=== PATIENT | female | born 1965 | race Caucasian/White ===

== ENCOUNTER 2016-11-19 11:00 | Inpatient (IN) | payer OTHER ==
[~2016-11-19] VITALS: Ht 175.3 cm; Wt 38.6 kg
--- NOTE | ~2016-11-19 | HP ---
Unit #: [id number] #: [id number] Patient: TAYA HENDRICKSON [id number] [place] [address] [id number] MR#: [id number] NAME: TAYA HENDRICKSON ROOM: P202 Age: 50 Sex: F Admission Date: 11/19/2016 : 1965 Attending Physician: Livan Ortiz M.D. Admitting Physician: Livan Ortiz M.D. Primary Care Physician: Generic Doctor Not In System HISTORY AND PHYSICAL HISTORY OF PRESENT ILLNESS Taya is a 50 year old admitted to [address] [place] [address] because of her abuse of alcohol. PAST MEDICAL HISTORY Long history of alcohol abuse. PAST SURGICAL HISTORY 1. Appendectomy. 2. T and A. ALLERGIES No known drug allergies. SOCIAL HISTORY Smokes 1/2 pack per day. Drinks a 12 pack plus at least a half bottle of wine on a daily basis. She denies illicit drug use. FAMILY HISTORY Medically noncontributory. REVIEW OF SYSTEMS CONSTITUTIONAL: No fever or chills. HEENT: Denies any sore throat, ear pain or runny nose. CARDIOVASCULAR: Denies chest pain, irregular heart rhythm or palpitations. CHEST: Denies shortness of breath or cough. No hemoptysis. GASTROINTESTINAL: Denies nausea, vomiting, diarrhea or chronic constipation. ENDOCRINE: Denies history of increased thirst or urination. No recent significant weight loss or gain. GENITOURINARY: Denies dysuria, frequency, or hematuria. SKIN: Denies any rashes. HEMATOLOGIC: Denies history of increased bleeding or bruising. MUSCULOSKELETAL: Denies any hot, swollen joints. No generalized muscle pain. NEUROLOGIC: Denies problems with vision or speech. No frequent, severe headaches. No numbness, tingling or weakness in any extremities. Denies loss of bladder or bowel control. CURRENT MEDICATIONS Detox protocol. PHYSICAL EXAMINATION Unit #: [id number] #: [id number] Patient: TAYA HENDRICKSON GENERAL: Alert, appearing much, much older than her stated age of 50 in no apparent distress. VITAL SIGNS: Blood pressure 120/94, heart rate 96, respirations 16, temperature 98.6. WEIGHT: 85 pounds. HEIGHT: 5 feet 9 inches. SKIN: Warm and dry without rash or lesion. HEENT: Normocephalic. TMs not viewed. Oral and nasal passages clear. Conjunctivae clear. PERRLA. EOMs intact. NECK: Supple without lymphadenopathy or thyromegaly. HEART: Regular rate and rhythm without murmur. LUNGS: Clear. ABDOMEN: Soft, nontender. : Not done. EXTREMITIES: No evidence of cyanosis, clubbing or edema. Moves all without focal deficit. NEUROLOGICAL: Grossly within normal limits. Cranial Nerves: II: Visual tan are intact. III, IV AND : Extraocular movements are intact. Pupils are equal, round and reactive to light. V: Facial sensation is grossly normal. VII: Facial movements and expression are normal. VIII: Auditory acuity grossly intact. IX, X: Uvula is midline. Phonation is normal. XI: Patient shrugs shoulders and turns head normally. XII: Tongue protrudes in the midline. Sensory and Motor Function: Sensory and motor sensation is grossly normal. Motor: moves all extremities well. Coordination: Gait is normal. Deep Tendon Reflexes: Intact. IMPRESSION Psychiatric admission. RECOMMENDATIONS PSYCHIATRIC: Per psychiatrist. MEDICAL: See no contraindication to participate in facility's activities. MEDICAL PROGNOSIS Good. MEDICAL CONDITION Stable. Dictated by... Renetta SamayoaAJonn. for Rosy Encarnacion/cassy TD: 11/20/2016 16:12 JOB #: [id number] Unit #: [id number] #: [id number] Patient: TAYA HENDRICKSON HISTORY AND PHYSICAL Page 1 of 1 X Ana Deng HISTORY AND PHYSICAL
--- NOTE | ~2016-11-19 | DS ---
Unit #: [id number] #: [id number] Patient: MARIO HENDRICKSON [id number] [facility] [address] [place] [address] [id number] I MR#: [id number] NAME: MARIO HENDRICKSON ROOM: P202 Age: 50 Sex: F Admission Date: 11/19/2016 : 1965 Discharge Date: 11/24/2016 Attending Physician: Livan Ortiz M.D. Primary Care Physician: Generic Doctor Not In System DISCHARGE SUMMARY REASON FOR ADMISSION The patient is a 50-year-old white female, admitted for alcohol detox. HOSPITAL COURSE The patient was admitted to the [address] [place] [address] unit and placed on routine detoxification protocol for alcohol. Her stay in the hospital was a brief and uneventful one. Her detox went smoothly and by 11/24/2016, arrangements have been made for the patient to go to "[facility]" in [place], [place]. She did request "something for anxiety" at the time of discharge. We will be provide a prescription for Vistaril to be used on a p.r.n. basis for anxiety. FINAL DIAGNOSES Alcohol use disorder. DISPOSITION ON DISCHARGE The patient is discharged on the following medications: Vistaril 50 mg q.8 hours p.r.n. anxiety. DISCHARGE INSTRUCTIONS No dietary or physical restrictions were placed on the patient at the time of discharge. FOLLOWUP Followup will take place through the auspices of "[facility]" in [place], [place]. PROGNOSIS Her prognosis is considered good. Dictated by... Livan Ortiz M.D. CB/josh TD: 11/24/2016 16:02 JOB #: [id number] Unit #: [id number] #: [id number] Patient: MARIO HENDRICKSON DISCHARGE SUMMARY Page 1 of 1 X Livan Ortiz MD X DISCHARGE SUMMARY
--- NOTE | ~2016-11-19 | A ---
[facility] Nutrition Therapy DATE: 11/20/16 Patient: MARIO HENDRICKSON Physician: BOBY Address: [address] Room/Bed: [address], Zip: [place] [address] Admit Date: 11/19/16 Date of : [birth year] Height: 5 9 Weight: 84 38.91845 NUTRITIONAL ASSESSMENT: REASON: LOW BMI (12.6) PATIENT ADMITTED FOR ETOH DETOX PMH: NONE Anthropometrics: HT: 69", WT: 85#, BMI: 12.6 Labs: NO LABS AVAILABLE Meds: DETOX PROTOCOL, MVI, VIT B COMPLEX, MELATONIN Assessment: PATIENT IS A 50 Y/O FEMALE ADMITTED FOR ETOH DETOX. PATIENT IS CURRENTLY UNEMPLOYED, LIVES WITH HER 2 AUNTS, SMOKES 1/2 PPD, AND HAS DAILY ETOH USE. IT IS NOTED THAT PRIOR TO ADMIT PATIENT HAS SOME LOSS OF BALANCE AND CONFUSION. PATIENT STATED THAT HER APPETITE FLUCTUATES, SHE HAS LOST 50# X 1 YEAR, AND SHE HAS NOT BEEN SLEEPING. NURSING REPORTED GOOD PO INTAKES, AND THAT PATIENT ATE DINNER LAST NIGHT AND BREAKFAST THIS MORNING. DURING VISIT PATIENT DID APPEAR TO BE QUITE THIN AND SHE HAD SOME C/O DIARRHEA. THIS RD DSCUSSED THE IMPORTANCE OF DRINKING PLENTY OF FLUIDS WHILE PATIENT IS EXPERIENCING DIARRHEA. PATIENT AGREED AND IS WILLING TO DRINK ENSURE WITH MEALS. SHE IS CURRENTLY ON A REGULAR DIET WITH NO CAFFEINE AND THERE ARE NO SKIN ISSUES NOTED ATT. Dx: INADEQUATE NUTRIENT INTAKE R/T ETOH ABUSE, CURRENT CONDITIONS AEB SELF-REPORTED SEVERE! WEIGHT LOSS AND DECREASED APPETITE, EXTREMELY LOW BMI. Intervention: REGULAR DIET, NO CAFFEINE, SUPPLEMENTS, MEDS PER MD, DETOX, PSYCH Monitoring, Evaluation and Goals: 1. ADEQUATE PO INTAKES >75% OF MEALS 2. PREVENT, CORRECT MICRO/MACRO NUTRIENT DEFICIENCIES 3. WEIGHTS; PROMOTE STEADY WEIGHT GAIN TOWARDS A HEALTHY BMI OF 19-25, PREVENT FURTHER WEIGHT LOSS MONITOR: WEIGHTS, LABS, PO/FLUID INTAKES Recommendations: 1. CONTINUE REGULAR DIET WITH NO CAFFEINE AND DAILY MVI. OFFER SNACKS BETWEEN MEALS. IF PATIENT HAS C/O HUNGER OR WOULD LIKE MORE FOOD, PLEASE SEND ORDER FOR LARGER PORTIONS AND RD WILL APPROVE [facility] DATE: 11/20/16 Patient: MARIO HENDRICKSON Physician: BOBY Address: [address] [place] [address] Room/Bed: P202-[address] [facility], Zip: [place] [address] Admit Date: 11/19/16 Date of : [birth year] Height: 5 9 Weight: 84 [phone] 2. ENCOURAGE ADEQUATE PO AND FLUID INTAKES. PATIENT IS AT A HIGH RISK FOR DEHYDRATION D/T DIARRHEA 3. OBTAIN WEIGHTS ROUTINELY (EVERY 3-4 DAYS) TO ENSURE PATIENT HAS ADEQUATE KCAL INTAKES 4. SEND CHOCOLATE ENSURE TID WITH MEALS. PATIENT HAS A NEED FOR INCREASED CALORIC INTAKE 5. MAY CONSIDER ADDING AN APPETITE STIMULANT RD TO F/U PER PROTOCOL AND PRN R/T PATIENT MILD/MODERATELY COMPROMISED Respectfully, CHRISTY ELIAS, BRENDA, LD [facility] cc: client file
--- NOTE | ~2016-11-19 | PA ---
Unit #: [id number] #: [id number] Patient: MARIO HENDRICKSON [id number] [place] [address] [id number] I MR#: [id number] NAME: MARIO HENDRICKSON ROOM: P202 Age: 50 Sex: F Admission Date: 11/19/2016 : 1965 Date of Assessment: 11/20/2016 Attending Physician: Livan Ortiz M.D. Admitting Physician: Livan Ortiz M.D. Primary Care Physician: Generic Doctor Not In System PSYCHIATRIC ASSESSMENT IDENTIFYING INFORMATION The patient is a 50-year-old white female admitted to the [address] [place] [address] for alcohol detox. CHIEF COMPLAINT "Drinking too much." INFORMANT(S) Patient, reliability is good. HISTORY OF PRESENT ILLNESS The patient is a 50-year-old white female with a long history of alcohol dependence. She denies any history of previous chemical dependence treatment, however. The patient was brought to this facility by her aunt with whom he is currently residing yesterday. The patient states she has been drinking up to 8 beers on a daily basis as well as a large amount of wine. She denies use of any other psychoactive substances. She denies recent changes in mood or sleep, but does report recent weight loss. She is not presently employed. She had previously worked as a manager of corporate. The patient reports no suicidal or homicidal ideation or any psychotic symptoms. She reports no history of complicated substance withdrawal apart from "shakes." PAST PSYCHIATRIC HISTORY Noncontributory. PAST MEDICAL HISTORY Noncontributory. MEDICATIONS None. ALLERGIES None. FAMILY HISTORY The patient's father was an alcoholic. SOCIAL HISTORY The patient lives with her aunt. She is an unemployed manager of corporate. She reports alcohol use as noted previously and is a smoker. MENTAL STATUS EXAMINATION Unit #: [id number] #: [id number] Patient: MARIO HENDRICKSON Examination at this time reveals the patient to be a very thin white female appearing her stated age. She is in no apparent physical distress at the time of the examination. She is awake, alert, and oriented in all spheres. Her mood is mildly dysphoric, her affect congruent. Speech is generally well coherent. There are no gross deficits in memory or cognition noted. Intelligence is judged to be in the average range based on fund of knowledge. The patient is cooperative throughout the interview. She is currently denying suicidal or homicidal ideation or psychotic features. Her judgment and insight appear to be intact. ASSETS AND LIABILITIES The patient's assets: Motivation for change, supportive family. Liabilities: Lack of resources, unemployment. DIAGNOSTIC IMPRESSION Alcohol use disorder. TREATMENT PLAN The patient remains hospitalized for safety and stabilization. Routine detoxification protocol has been initiated, and we will add Ensure given the patient's weight loss. right of way worker staff will work with the patient regarding post-discharge treatment options. ESTIMATED LENGTH OF STAY 3 to 4 days. Dictated by... Livan Oritz M.D. Ellen TD: 11/20/2016 14:01 JOB #: [id number] PSYCHIATRIC ASSESSMENT Page 1 of 1 X Livan Ortiz MD X PSYCHIATRIC ASSESSMENT
--- NOTE | ~2016-11-19 | PN ---
Unit #: [id number] #: [id number] Patient: MARIO HENDRICKSON [id number] [facility] [address] [place] [address] [id number] I MR#: [id number] NAME: MARIO HENDRICKSON ROOM: P202 Age: 50 Sex: F Admission Date: 11/19/2016 : 1965 Attending Physician: Livan Ortiz M.D. Admitting Physician: Livan Ortiz M.D. Primary Care Physician: Chago Doctor Not In System [facility] PROGRESS NOTES DATE 11/22/2016 DISCUSSION The patient remains active within the therapeutic milieu and appears to exhibit little in the way or signs or symptoms of withdrawal during today's interview. We expect a.m. discharge. The patient stating that she will live with her aunt following her discharge from this facility. Dictated by... Livan Ortiz M.D. CB/halie TD: 11/22/2016 22:28 JOB #: [id number] [facility] PROGRESS NOTES Page 1 of 1 X Livan Ortiz MD X PROGRESS NOTE
--- NOTE | ~2016-11-19 | PN ---
Unit #: [id number] #: [id number] Patient: MARIO HENDRICKSON [id number] [facility] [address] [place] [address] [id number] I MR#: [id number] NAME: MARIO HENDRICKSON ROOM: P202 Age: 50 Sex: F Admission Date: 11/19/2016 : 1965 Attending Physician: Livan Ortiz M.D. Admitting Physician: Livan Ortiz M.D. Primary Care Physician: Generic Doctor Not In System [facility] PROGRESS NOTES DATE 11/21/2016 DISCUSSION The patient is active in the therapeutic milieu and exhibits little in the way of signs or symptoms of withdrawal. I have told her to expect probable discharge after the weekend with followup to take place through the auspices of community mental [facility] resources. Dictated by... Livan Ortiz M.D. JANES/bzkarla TD: 11/21/2016 11:50 JOB #: [id number] [facility] PROGRESS NOTES Page 1 of 1 X Livan Ortiz MD PROGRESS NOTE
[2016-11-20 10:25] LABS: ALBUMIN SERUM 4.4 g/dL (3.5-5.0); BILIRUBIN,TOTAL 2.3 mg/dL (0.2-2.0); CALCIUM SERUM 9.8 mg/dL (8.4-10.2); CREATININE SERUM 0.5 mg/dL (0.6-1.4); GLOM FILT RATE Estimated 111.3 mL/min (>60); POTASSIUM 3.9 mmol/L (3.5-5.1); PROTEIN TOTAL SERUM 7.7 g/dL (6.0-8.3)
[2016-11-20 10:33] LABS: BASOPHIL% 0.7 % (0-2.5); EOSINOPHIL# 0.1 X10e3 (0-0.7); EOSINOPHIL% 2.4 % (0.0-7.0); HEMATOCRIT 43.5 % (35.0-45.0); HEMOGLOBIN 14.8 gm/dL (12.0-16.0); LYMPHOCYTE# 1.1 X10e3 (1.0-3.5); MEAN CELL VOLUME 103.2 FL (83-96); MEAN CORPUSCULAR HEMOGLOBIN 35.1 PG (28-34); MEAN CORPUSCULAR HGB CONC 34.1 g/dL (30-36); MEAN PLATELET VOLUME 9.7 FL (6.5-11.5); MONOCYTE# 0.2 X10e3 (0-1.0); MONOCYTE% 7.3 % (3.0-12.0); NEUTROPHIL# 1.3 X10e3 (1.5-7.1); NEUTROPHIL% 48.6 % (40-75); PLATELET COUNT 67 X10e3 (140-420); RED BLOOD COUNT 4.22 X10e (3.90-5.30); RED CELL DISTRIBUTION WIDTH 13.2 % (11.0-15.5); WHITE BLOOD COUNT 2.7 X10e3 (4.0-10.5)
[2016-11-20 11:12] LABS: DIFF IND YES
[2016-11-20 11:20] LABS: PLATELET ESTIMATE DECREASED (NORMAL)
[2016-11-22 11:18] LABS: URINE APPEARANCE CLEAR; URINE BILIRUBIN NEG (NEG); URINE BLOOD NEG (NEG); URINE COLOR YELLOW; URINE GLUCOSE NEG (NEG); URINE KETONE NEG (NEG); URINE LEUKOCYTE ESTERASE NEG (NEG); URINE NITRATE NEG (NEG); URINE PROTEIN NEG (NEG); URINE SPECIFIC GRAVITY 1.004 (1.003-1.035); URINE UROBILINOGEN 0.2 MG/DL (NEG)
[2016-11-22 11:42] LABS: AMPHETAMINE NEG (NEG); BARBITURATES NEG (NEG); BENZODIAZEPINES NEG (NEG); COCAINE NEG (NEG); MARIJUANA NEG (NEG); OPIATES NEG (NEG); TRICYCLIC ANTIDEPRESSANTS NEG (NEG); U METHADONE NEG (NEG)
== END 2016-11-24 15:53 | disposition home or self-care (01) | DRG 897 ==
LOC: P2S 14:41
PROVIDERS: Specialist
PROC: HZ2ZZZZ Detoxification Services for Substance Abuse Treatment (ICD-10-PCS; principal; 2016-11-19)
DX: F10.10 Alcohol abuse, uncomplicated (principal); F17.200 Nicotine dependence, unspecified, uncomplicated; Z81.1 Family history of alcohol abuse and dependence
CPT/HCPCS: 80053; 80307; 81003; 85025